=== PATIENT | female | born 1995 | race Caucasian/White ===

== ENCOUNTER → 2017-08-18 | Outpatient (CLI) | payer BC ==
[~2017-08-18] MED LIST: ANTIVERT 25MG25 MG PO; ATIVAN0.5 MG PO; AVIANE 0.02 MG-1 TAB PO; FLEXERIL 1010 MG/TAB PO; KLONOPIN 1MG1 MG PO; LAMICTAL 25MG T25 MG PO; LEXAPRO20 MG PO; SEROQUEL 2525 MG/TAB PO; TRI-LEVLEN 281 TAB PO; VALIUM 2MG T2 MG/TAB PO; ZOFRAN 4MG T4 MG/TAB PO
== END ==
LOC: BHSO 15:41
DX: F41.1 Generalized anxiety disorder (principal)